=== PATIENT | male | born 1955 | race Caucasian/White ===

== ENCOUNTER 2018-06-16 19:49 | Observation (INO) | payer BC ==
--- NOTE | 2018-06-16 21:04 | ED ---
General Adult HPI - General Chief complaint: Weakness Stated complaint: Neuro Symptoms Source: patient, EMS Mode of arrival: EMS Limitations: no limitations - History of Present Illness Initial comments: Dictation was produced using [employer] dictation software. please excuse any grammatical, word or spelling errors. Chief Complaint: 63-year-old male with past medical history A. fib ablation, dyslipidemia and hypertension presents with strokelike symptoms. History of Present Illness: Since his symptoms began 20 minutes prior to arrival. He states that his left upper extremity went completely flaccid. States that his symptoms lasted for 20 minutes and then he regained function of his left upper extremity. He does state that he still has some residual numbness in his pinky however that has since resolved. Patient takes Coumadin for atrial fibrillation. He denies ever having had stroke in the past. The ROS documented in this emergency department record has been reviewed and confirmed by me. Those systems with pertinent positive or negative responses have been documented in the HPI. All other systems are other negative and/or noncontributory. - Related Data Home Medications Medication Instructions Recorded Confirmed Lisinopril 30 mg PO DAILY 06/16/18 06/16/18 Lisinopril 40 mg PO DIRECTED 06/16/18 06/16/18 Metoprolol Succinate [Toprol Xl] 50 mg PO DAILY 06/16/18 06/16/18 Omeprazole [PriLOSEC] 20 mg PO AC-BRKFST 06/16/18 06/16/18 Propafenone [Rythmol] 225 mg PO TID 06/16/18 06/16/18 Simvastatin [Zocor] 40 mg PO HS 06/16/18 06/16/18 Warfarin [Coumadin] 2.5 mg PO SA 06/16/18 06/16/18 Warfarin [Coumadin] 5 mg PO SUMOTUWETHFR 06/16/18 06/16/18 metFORMIN HCL [Glucophage] 500 mg PO BID 06/16/18 06/16/18 Allergies Allergy/AdvReac Type Severity Reaction Status Date / Time No Known Allergies Allergy Unverified 06/16/18 20:06 Review of Systems ROS Statement: Those systems with pertinent positive or pertinent negative responses have been documented in the HPI. ROS Other: All systems not noted in ROS Statement are negative. Past Medical History Past Medical History: Atrial Fibrillation, Hyperlipidemia, Hypertension History of Any Multi-Drug Resistant Organisms: None Reported Additional Past Surgical History / Comment(s): left rotator cuff surgery Past Psychological History: No Psychological Hx Reported Smoking Status: Never smoker Past Alcohol Use History: Occasional Past Drug Use History: None Reported General Exam - General Exam Comments Initial Comments: PHYSICAL EXAM: General Impression: Alert and oriented x3, not in acute distress HEENT: Normocephalic atraumatic, extra-ocular movements intact, pupils equal and reactive to light bilaterally, mucous membranes moist. Cardiovascular: Heart regular rate and rhythm, S1&S2 audible, no murmurs, rubs or gallops Chest: Lungs clear to auscultation bilaterally, no rhonchi, no wheeze, no rales Abdomen: Bowel sounds present, abdomen soft, non-tender, non-distended, no organomegaly Musculoskeletal: Pulses present and equal in all extremities, no peripheral edema Motor: Power 5/5 bilaterally, no focal deficits noted Neurological: CN II-XII grossly intact, no focal motor or sensory deficits noted Skin: Intact with no visualized rashes Psych: Normal affect and mood Limitations: no limitations Course Vital Signs 06/16/18 19:54 Temperature 98.1 F Pulse Rate 91 Respiratory 18 Rate Blood Pressure 144/87 O2 Sat by Pulse 97 Oximetry Medical Decision Making - Medical Decision Making ED course: 63-year-old male clinical presentation consistent with transient ischemic attack. Vital signs upon arrival are within acceptable limits. NIH of 0 at this time. Patient is not a candidate for TPA given history of Coumadin use and resolution of stroke symptoms. Patient given aspirin Laboratory evaluation obtained. CBC unremarkable. INR is 2.9. Patient is on Coumadin. Metabolic panel is unremarkable. Computed tomography scan of the head shows no acute processes. Chest x-rays negative. Atrial fibrillation is seen on EKG. He has not history of A. fib and is on Coumadin. Patient still continues to have some paresthesias to his left pinky. Clinically speaking there is concern for cerebrovascular accident. Most of the left upper extremity paresthesias has improved. Discussed patient that we like to keep him admitted to the hospital with neurology consult. Patient be admitted for CVA. EKG Interpretation: A 12 lead EKG was obtained. It was interpreted by myself and attending physician. There is a P wave before every QRS complex. Rate is 80. Rhythm is H fibrillation, QRS 96, QTC 447. QT is not prolonged. No ST segment depression or elevation.Overall, this EKG is unremarkable - Lab Data Result diagrams: 06/16/18 21:04 06/16/18 21:04 Lab Results 06/16/18 06/16/18 06/16/18 Range/Units 21:00 21:04 21:04 WBC 5.3 (3.8-10.6) k/uL RBC 4.38 (4.30-5.90) m/uL Hgb 13.5 (13.0-17.5) gm/dL Hct 40.6 (39.0-53.0) % MCV 92.6 (80.0-100.0) fL MCH 30.7 (25.0-35.0) pg MCHC 33.2 (31.0-37.0) g/dL RDW 13.3 (11.5-15.5) % Plt Count 238 (150-450) k/uL Neutrophils % 64 % Lymphocytes % 27 % Monocytes % 4 % Eosinophils % 2 % Basophils % 1 % Neutrophils # 3.4 (1.3-7.7) k/uL Lymphocytes # 1.5 (1.0-4.8) k/uL Monocytes # 0.2 (0-1.0) k/uL Eosinophils # 0.1 (0-0.7) k/uL Basophils # 0.0 (0-0.2) k/uL PT (9.0-12.0) sec INR (<1.2) APTT (22.0-30.0) sec Sodium 140 (137-145) mmol/L Potassium 3.6 (3.5-5.1) mmol/L Chloride 112 H (98-107) mmol/L Carbon Dioxide 21 L (22-30) mmol/L Anion Gap 7 mmol/L BUN 9 (9-20) mg/dL Creatinine 0.71 (0.66-1.25) mg/dL Est GFR (CKD-EPI)AfAm >90 (>60 ml/min/1.73 sqM) Est GFR (CKD-EPI)NonAf >90 (>60 ml/min/1.73 sqM) Glucose 84 (74-99) mg/dL Calcium 8.0 L (8.4-10.2) mg/dL Total Bilirubin 0.5 (0.2-1.3) mg/dL AST 18 (17-59) U/L ALT 34 (21-72) U/L Alkaline Phosphatase 37 L (38-126) U/L Total Creatine Kinase 86 (55-170) U/L CK-MB (CK-2) 2.0 (0.0-2.4) ng/mL CK-MB (CK-2) Rel Index 2.3 Troponin I <0.012 (0.000-0.034) ng/mL Total Protein 5.7 L (6.3-8.2) g/dL Albumin 3.3 L (3.5-5.0) g/dL 06/16/18 Range/Units 21:04 WBC (3.8-10.6) k/uL RBC (4.30-5.90) m/uL Hgb (13.0-17.5) gm/dL Hct (39.0-53.0) % MCV (80.0-100.0) fL MCH (25.0-35.0) pg MCHC (31.0-37.0) g/dL RDW (11.5-15.5) % Plt Count (150-450) k/uL Neutrophils % % Lymphocytes % % Monocytes % % Eosinophils % % Basophils % % Neutrophils # (1.3-7.7) k/uL Lymphocytes # (1.0-4.8) k/uL Monocytes # (0-1.0) k/uL Eosinophils # (0-0.7) k/uL Basophils # (0-0.2) k/uL PT 26.4 H (9.0-12.0) sec INR 2.9 H (<1.2) APTT 33.4 H (22.0-30.0) sec Sodium (137-145) mmol/L Potassium (3.5-5.1) mmol/L Chloride (98-107) mmol/L Carbon Dioxide (22-30) mmol/L Anion Gap mmol/L BUN (9-20) mg/dL Creatinine (0.66-1.25) mg/dL Est GFR (CKD-EPI)AfAm (>60 ml/min/1.73 sqM) Est GFR (CKD-EPI)NonAf (>60 ml/min/1.73 sqM) Glucose (74-99) mg/dL Calcium (8.4-10.2) mg/dL Total Bilirubin (0.2-1.3) mg/dL AST (17-59) U/L ALT (21-72) U/L Alkaline Phosphatase (38-126) U/L Total Creatine Kinase (55-170) U/L CK-MB (CK-2) (0.0-2.4) ng/mL CK-MB (CK-2) Rel Index Troponin I (0.000-0.034) ng/mL Total Protein (6.3-8.2) g/dL Albumin (3.5-5.0) g/dL Disposition Clinical Impression: CVA (cerebral vascular accident) Disposition: ADMITTED IP TO THIS HOSP Condition: Fair Referrals: Kin Denton MD [Primary Care Provider] - 1-2 days Time of Disposition: 22:25
--- NOTE | 2018-06-16 21:13 | CT ---
EXAMINATION TYPE: CT brain wo con DATE OF EXAM: 06/16/2018 COMPARISON: 01/18/2011 HISTORY: Left arm numbness. CT DLP: 1074.8 mGycm Automated exposure control for dose reduction was used. FINDINGS: Ventricles have normal size. There is no mass effect nor midline shift. There is no sign of intracran ial hemorrhage. The calvarium is intact. IMPRESSION: NEGATIVE CT SCAN OF THE BRAIN. NO CHANGE.
[2018-06-16 21:20] LABS: Basophils % (A) 1 %; Eosinophils # (A) 0.1 k/uL (0-0.7); Eosinophils % (A) 2 %; HCT 40.6 % (39.0-53.0); HGB 13.5 gm/dL (13.0-17.5); Lymphocytes # (A) 1.5 k/uL (1.0-4.8); Lymphocytes % (A) 27 %; MCH 30.7 pg (25.0-35.0); MCHC 33.2 g/dL (31.0-37.0); MCV 92.6 fL (80.0-100.0); Mean Platelet Volume 6.6; Monocytes # (A) 0.2 k/uL (0-1.0); Monocytes % (A) 4 %; Neutrophils # (A) 3.4 k/uL (1.3-7.7); Neutrophils % (A) 64 %; Platelet Count 238 k/uL (150-450); RBC 4.38 m/uL (4.30-5.90); RDW 13.3 % (11.5-15.5); WBC 5.3 k/uL (3.8-10.6)
--- NOTE | 2018-06-16 21:23 | XR ---
EXAMINATION TYPE: XR chest 2V DATE OF EXAM: 06/16/2018 COMPARISON: 01/18/2011 HISTORY: Altered mental status TECHNIQUE: Frontal and lateral views of the chest are obtained. FINDINGS: There is no heart failure nor confluent pneumonic infiltrate. Costophrenic angles are patricia r. Bony thorax is intact. There is mild linear density in the lung montalvo. IMPRESSION: Subsegmental atelectasis is new compared to old exam.. Normal heart.
[2018-06-16 21:25] LABS: INR 2.9 (<1.2); Partial Thromboplastin Time 33.4 sec (22.0-30.0); Prothrombin Time 26.4 sec (9.0-12.0)
[2018-06-16 21:26] LABS: ALT 34 U/L (21-72); AST 18 U/L (17-59); Albumin 3.3 g/dL (3.5-5.0); Alkaline Phosphatase 37 U/L (38-126); Anion Gap 7 mmol/L; Blood Urea Nitrogen 9 mg/dL (9-20); Carbon Dioxide 21 mmol/L (22-30); Chloride 112 mmol/L (98-107); Glucose 84 mg/dL (74-99); Potassium 3.6 mmol/L (3.5-5.1); Sodium 140 mmol/L (137-145); Total Bilirubin 0.5 mg/dL (0.2-1.3); Total Protein 5.7 g/dL (6.3-8.2)
[2018-06-16 21:34] LABS: Creatine Kinase 86 U/L (55-170)
[2018-06-16 21:48] LABS: Troponin I <0.012 ng/mL (0.000-0.034)
[2018-06-16 23:46] VITALS: BMI 33.7
[2018-06-17 07:11] LABS: Cholesterol 152 mg/dL (<200); HDL Cholesterol 32 mg/dL (40-60); LDL Cholesterol,Calculated 94 mg/dL (0-99); Triglycerides 131 mg/dL (<150)
--- NOTE | 2018-06-17 10:01 | P.CNNES ---
History of Present Illness Consult date: 06/17/18 Reason for Consult: Patient admitted with left sided weakness and TIA. History of Present Illness: This patient is a 63-year-old right-handed white male who was brought into the emergency room yesterday for evaluation of episode of left arm weakness. Patient states he was at home yesterday evening at about 6 PM and was making his bed when he noticed he could not move or lift his left arm. He thought maybe he had injured his arm but it continued to remain flaccid for at least 15 minutes in duration. He decided to call EMS and by the time EMS had arrived to his home he slowly regained some use of the left arm. He was taken by EMS to the emergency room at [facility] for further evaluation. According to the patient his left arm remained flaccid for at least 15 minutes duration. Patient does have a history of atrial fibrillation. He is followed in the cardiology clinic with Dr. Miranda. He in fact was seen in the cardiology clinic yesterday and was being planned to undergo a ablation procedure next week. This first ablation procedure was done about 5 years ago. Apparently he was taken off of Coumadin but is now currently taking Coumadin on a regular basis. His INR in the emergency room yesterday was in the therapeutic range at 2.9. Patient was evaluated in the ER by Dr. Yen and was sent for a computed tomography scan of the brain. CAT scan of the brain came back negative for any acute changes. She was admitted to the hospital for further evaluation. Patient states that after 15 minutes or so in the ER yesterday is complete strength return to the left arm. He has had no further recurrence of left-sided numbness or weakness. His clinical history is consistent with acute right hemispheric TIA even though he is anticoagulated for his atrial fibrillation and is taking Coumadin. We have recommended that the patient should be seen by cardiology today for their further opinion in terms of ablation procedure versus long-term anticoagulation. The patient has been taking Zocor 40 mg daily. He states he has not had a recent lipid profile done. He denies any headache at this time. His neurological examination today is otherwise nonfocal. Patient is now admitted and neurology has been consulted for further evaluation and recommendations. Review of Systems Constitutional: Denies chills, Denies fever Eyes: denies blurred vision, denies pain Ears, nose, mouth and throat: Denies headache, Denies sore throat Cardiovascular: Reports irregular heart beat, Denies chest pain, Denies shortness of breath Respiratory: Denies cough Gastrointestinal: Denies abdominal pain, Denies diarrhea, Denies nausea, Denies vomiting Musculoskeletal: Denies myalgias Integumentary: Denies pruritus, Denies rash Neurological: Reports motor disturbance, Denies numbness, Denies weakness Psychiatric: Denies anxiety, Denies depression Endocrine: Denies fatigue, Denies weight change Past Medical History Past Medical History: Atrial Fibrillation, Hyperlipidemia, Hypertension History of Any Multi-Drug Resistant Organisms: None Reported Additional Past Surgical History / Comment(s): left rotator cuff surgery Past Anesthesia/Blood Transfusion Reactions: No Reported Reaction Past Psychological History: No Psychological Hx Reported Smoking Status: Never smoker Past Alcohol Use History: Occasional Past Drug Use History: None Reported Medications and Allergies Home Medications Medication Instructions Recorded Confirmed Type Lisinopril 40 mg PO DAILY 06/16/18 06/17/18 History Metoprolol Succinate [Toprol Xl] 50 mg PO DAILY 06/16/18 06/16/18 History Omeprazole [PriLOSEC] 20 mg PO AC-BRKFST 06/16/18 06/16/18 History Simvastatin [Zocor] 40 mg PO HS 06/16/18 06/16/18 History Warfarin [Coumadin] 2.5 mg PO SA 06/16/18 06/16/18 History Warfarin [Coumadin] 5 mg PO SUMOTUWETHFR 06/16/18 06/16/18 History metFORMIN HCL [Glucophage] 500 mg PO BID 06/16/18 06/16/18 History Allergies Allergy/AdvReac Type Severity Reaction Status Date / Time No Known Allergies Allergy Unverified 06/16/18 20:06 Physical Examination - Vital Signs Vital Signs: Vital Signs Temp Pulse Pulse Resp BP BP Pulse Ox 06/17/18 04:00 97.8 F 64 15 127/70 100 06/17/18 00:00 97.8 F 65 16 146/64 99 06/16/18 23:27 98.1 F 82 18 135/90 96 06/16/18 22:57 98.2 F 78 18 141/93 98 06/16/18 22:39 98 F 68 16 148/70 98 06/16/18 21:30 86 18 133/90 95 06/16/18 19:54 98.1 F 91 18 144/87 97 Intake and Output 06/16/18 06/17/18 06/17/18 22:59 06:59 14:59 Intake Total 480 Output Total 700 Balance -220 Intake: Oral 480 Output: Urine 700 Other: Voiding Method Toilet Weight 116.12 kg 115.1 kg - Constitutional General appearance: average body habitus, cooperative - EENT EENT: PERRL, mucous membranes moist - Respiratory Respiratory: lungs clear, normal breath sounds - Cardiovascular Cardiovascular: regular rate, normal S1, normal S2 Extremities: no peripheral edema bilaterally - Gastrointestinal Gastrointestinal: normoactive bowel sounds - Integumentary Integumentary: normal - Neurologic Cranial nerve examination: PERRL, EOMI, V1/V2/V3 grossly intact, face symmetric , intact gag reflex, intact corneal reflex, normal palatal elevation Speech examination: intact Sensorimotor examination: intact Detailed motor examination: full strength in all major muscle groups Motor examination - right side: 5/5: biceps, triceps, wrist flexion, wrist extension, hydrotel operator, hip flexors, knee extensors, dorsiflexion, toe extension (EHL) , plantarflexion Motor examination - left side: 5/5: biceps, triceps, wrist flexion, wrist extension, hydrotel operator, hip flexors, knee extensors, dorsiflexion, toe extension (EHL) , plantarflexion Detailed sensory examination: intact Reflex and gait examination: intact Reflexes: 1+: ankle, bicep, knee, tricep - Musculoskeletal Musculoskeletal: no pain - Psychiatric Psychiatric: mood/affect appropriate, cooperative Results - Laboratory Findings CBC and BMP: 06/16/18 21:04 06/16/18 21:04 Abnormal Lab Findings: Abnormal Labs 06/16/18 06/16/18 06/17/18 21:04 21:04 06:30 PT 26.4 H INR 2.9 H APTT 33.4 H Chloride 112 H Carbon Dioxide 21 L Calcium 8.0 L Alkaline Phosphatase 37 L Total Protein 5.7 L Albumin 3.3 L HDL Cholesterol 32 L Assessment and Plan (1) TIA (transient ischemic attack) Current Visit: Yes Status: Acute Code(s): G45.9 - TRANSIENT CEREBRAL ISCHEMIC ATTACK, UNSPECIFIED SNOMED Code(s): 682023704 (2) Atrial fibrillation Current Visit: Yes Status: Acute Code(s): I48.91 - UNSPECIFIED ATRIAL FIBRILLATION SNOMED Code(s): 78773500 (3) History of cardiac radiofrequency ablation Current Visit: Yes Status: Acute Code(s): Z98.890 - OTHER SPECIFIED POSTPROCEDURAL STATES SNOMED Code(s): 869568396 (4) Hyperlipidemia Current Visit: Yes Status: Acute Code(s): E78.5 - HYPERLIPIDEMIA, UNSPECIFIED SNOMED Code(s): 63892109 Plan: This patient is a 63-year-old male with a long-standing history of atrial fibrillation in the past. He underwent cardiac ablation procedure 5 years ago and has been maintained on Coumadin therapy. Yesterday the patient developed an episode of left arm hemiplegia that lasted at least 15-20 minutes in duration. He was brought into the emergency room for further evaluation. His symptoms did resolve and his strength returned to the left arm completely while he was waiting in the emergency room. He is taking Coumadin and his INR yesterday was 2.9. He had been seen in the cardiology clinic just recently and underwent extensive testing. He is being scheduled for a repeat ablation procedure in the next few weeks. This patient likely is suffering acute right hemispheric TIA. We recommend he be maintained on Coumadin with an INR between 23. Case was discussed with cardiology today and they will reevaluate him in terms of his current symptoms. He will require possible ablation procedure for further management. We will await further recommendations from cardiology. We have recommended a complete stroke evaluation for the patient. His overall prognosis at this time remains very guarded. Time with Patient: Greater than 30
--- NOTE | 2018-06-17 10:03 | P.CRDCN ---
History of Present Illness Consult date: 06/17/18 Requesting physician: Dillon Loza Consult reason: atrial fibrillation Chief complaint: Left arm numbness and flaccidity History of present illness: This is a pleasant 63-year-old male who follows regularly with Dr. Aponte in the office. He has known persistent atrial fibrillation, he has in the past undergone antral isolation of the pulmonary veins about 5 years ago , he is recently seen Dr. Miranda in the office, was back in atrial fibrillation , he had been on Rythmol up until that point. Patient also has history of hypertension, hyperlipidemia, family history of coronary artery disease and prior history of smoking. At his most recent visit in the office yesterday, his Rythmol was discontinued and patient was told to start his flecainide tomorrow. He is then scheduled to undergo another cardioversion on July [address] Pop. Patient has been on Coumadin for several years for his atrial fibrillation, INR is 2.9. He presents to the hospital on this occasion with symptoms of left arm weakness and flaccidity which came on all of a sudden , symptoms lasted 20-30 minutes in duration. This morning at the time of my examination he no longer has any weakness in that arm. Had scan of the brain was performed on admission which was negative. Chest x-ray revealed subsegmental atelectasis new as compared with prior exam. EKG shows atrial fibrillation with a controlled ventricular response. I pressure on arrival 144/ 80, heart rate in the 90s, temperature 98.1, he is 97% on room air. Blood pressure this morning 152/90, heart rate in the 80s, temperature 98.7, 100% on room air CBC is normal, INR 2.9, sodium 140, potassium 3.6, BUN 9, creatinine 0.7. At the time of my examination this morning, patient's symptoms have completely resolved, he has no complaints. Past Medical History Past Medical History: Atrial Fibrillation, Hyperlipidemia, Hypertension History of Any Multi-Drug Resistant Organisms: None Reported Additional Past Surgical History / Comment(s): left rotator cuff surgery Past Anesthesia/Blood Transfusion Reactions: No Reported Reaction Past Psychological History: No Psychological Hx Reported Smoking Status: Never smoker Past Alcohol Use History: Occasional Past Drug Use History: None Reported Medications and Allergies Home Medications Medication Instructions Recorded Confirmed Type Lisinopril 40 mg PO DAILY 06/16/18 06/17/18 History Metoprolol Succinate [Toprol Xl] 50 mg PO DAILY 06/16/18 06/16/18 History Omeprazole [PriLOSEC] 20 mg PO AC-BRKFST 06/16/18 06/16/18 History Simvastatin [Zocor] 40 mg PO HS 06/16/18 06/16/18 History Warfarin [Coumadin] 2.5 mg PO SA 06/16/18 06/16/18 History Warfarin [Coumadin] 5 mg PO SUMOTUWETHFR 06/16/18 06/16/18 History metFORMIN HCL [Glucophage] 500 mg PO BID 06/16/18 06/16/18 History Allergies Allergy/AdvReac Type Severity Reaction Status Date / Time No Known Allergies Allergy Unverified 06/16/18 20:06 Physical Exam Vitals: Vital Signs Temp Pulse Pulse Resp BP BP Pulse Ox 06/17/18 08:00 98.7 F 84 16 152/97 100 06/17/18 04:00 97.8 F 64 15 127/70 100 06/17/18 00:00 97.8 F 65 16 146/64 99 06/16/18 23:27 98.1 F 82 18 135/90 96 06/16/18 22:57 98.2 F 78 18 141/93 98 06/16/18 22:39 98 F 68 16 148/70 98 06/16/18 21:30 86 18 133/90 95 06/16/18 19:54 98.1 F 91 18 144/87 97 Intake and Output 06/16/18 06/17/18 06/17/18 22:59 06:59 14:59 Intake Total 480 Output Total 700 Balance -220 Intake: Oral 480 Output: Urine 700 Other: Voiding Method Toilet Weight 116.12 kg 115.1 kg PHYSICAL EXAMINATION: GENERAL: 63-year-old gentleman in no acute distress at the time of my examination HEENT: Head is atraumatic, normocephalic. Pupils equal, round. Sclera anicteric. Conjunctiva are clear. Mucous membranes of the mouth are moist. Neck is supple. There is no elevated jugular venous pressure.] bruit is heard. HEART EXAMINATION: Heart S1 and S2 irregularly irregular CHEST EXAMINATION: Lungs are clear to auscultation and precussion. No chest wall tenderness is noted on palpation or with deep breathing. ABDOMEN: Soft, nontender. Bowel sounds are heard. No organomegaly noted. EXTREMITIES: 2+ peripheral pulses with no evidence of peripheral edema and no calf tenderness noted. NEUROLOGIC patient is awake, alert and oriented ?-3. . Results 06/16/18 21:04 06/16/18 21:04 Cardiac Enzymes 06/16/18 06/16/18 Range/Units 21:00 21:04 AST 18 (17-59) U/L CK-MB (CK-2) 2.0 (0.0-2.4) ng/mL Troponin I <0.012 (0.000-0.034) ng/mL Coagulation 06/16/18 Range/Units 21:04 PT 26.4 H (9.0-12.0) sec APTT 33.4 H (22.0-30.0) sec Lipids 06/17/18 Range/Units 06:30 Triglycerides 131 (<150) mg/dL Cholesterol 152 (<200) mg/dL HDL Cholesterol 32 L (40-60) mg/dL CBC 06/16/18 Range/Units 21:04 WBC 5.3 (3.8-10.6) k/uL RBC 4.38 (4.30-5.90) m/uL Hgb 13.5 (13.0-17.5) gm/dL Hct 40.6 (39.0-53.0) % Plt Count 238 (150-450) k/uL Comprehensive Metabolic Panel 06/16/18 Range/Units 21:04 Sodium 140 (137-145) mmol/L Potassium 3.6 (3.5-5.1) mmol/L Chloride 112 H (98-107) mmol/L Carbon Dioxide 21 L (22-30) mmol/L BUN 9 (9-20) mg/dL Creatinine 0.71 (0.66-1.25) mg/dL Glucose 84 (74-99) mg/dL Calcium 8.0 L (8.4-10.2) mg/dL AST 18 (17-59) U/L ALT 34 (21-72) U/L Alkaline Phosphatase 37 L (38-126) U/L Total Protein 5.7 L (6.3-8.2) g/dL Albumin 3.3 L (3.5-5.0) g/dL Intake and Output 08/17/18 08/18/18 08/18/18 22:59 06:59 14:59 Intake Total 480 Output Total 700 Balance -220 Intake: Oral 480 Output: Urine 700 Other: Voiding Method Toilet Weight 116.12 kg 115.1 kg 06/16/18 21:04 06/16/18 21:04 EKG Interpretations (text) EKG shows atrial fibrillation with controlled ventricular response. Assessment and Plan Plan: Assessment and plan #1 symptoms of left-sided flaccidity and weakness, suggestive of TIA. Initial CAT scan was normal. #2 paroxysmal atrial fibrillation, patient has history of prior ablation in 2012 , Rythmol was discontinued in the office yesterday, he was told to start flecainide from tomorrow. He then is scheduled to undergo a cardioversion next week, and subsequent ablation on July 13. On Coumadin for anticoagulation , INR 2.9. #3 hyperlipidemia #4 hypertension #5 family history of CAD #6 prior history of smoking Plan We will obtain an echocardiogram with Doppler study. I did have a discussion with the patient regarding initiating one of the newer anticoagulants, this has been discussed with him in the past but because of cost they did not proceed with this. This time we will continue the patient's Coumadin, and initiate flecainide from tomorrow. Cardioversion is already scheduled for next week. Further recommendations to follow. DNP note has been reviewed, I agree with a documented findings and plan of care. Patient was seen and examined.
[2018-06-17] MEDS ORDERED: LISINOPRIL 20 MG TAB PO STA (10:24)
[2018-06-17] MEDS ORDERED: METOPROLOL SUCCINATE (ER) 50 MG TAB.ER.24H PO STA (10:26)
--- NOTE | 2018-06-17 12:29 | US ---
EXAMINATION TYPE: US carotid duplex BILAT DATE OF EXAM: 06/17/2018 COMPARISON: NONE CLINICAL HISTORY: Patient with right hemispheric TIA.. Left arm numbness EXAM MEASUREMENTS: RIGHT: Peak Systolic Velocity (PSV) cm/sec ----- Right CCA: 82.0 ----- Right ICA: 70.3 ----- Right ECA: 60.3 ICA/CCA ratio: 0.9 RIGHT: End Diastole cm/sec ----- Right CCA: 20.7 ----- Right ICA: 28.6 ----- Right ECA: 10.9 LEFT: Peak Systolic Velocity (PSV) cm/sec ----- Left CCA: 63.8 ----- Left ICA: 91.9 ----- Left ECA: 77.5 ICA/CCA ratio: 1.4 LEFT: End Diastole cm/sec ----- Left CCA: 20.7 ----- Left ICA: 25.7 ----- Left ECA: 16.7 VERTEBRALS (direction of flow): Right Vertebral: Antegrade Left Vertebral: Antegrade Mild plaque bilateral bifurcations. No increased velocities. No evidence of significant stenosis IMPRESSION: I DO NOT SEE EVIDENCE OF A HEMODYNAMICALLY SIGNIFICANT STENOSIS IN EITHER CAROTID SYSTEM. Criteria for Assigning % of Stenosis / Diameter reduction (Estimation based on the indirect measurements of the internal carotid artery velocities (ICA PSV). 1. Normal (no stenosis)=ICA PSV < 125 cm/s: ratio < 2.0: ICA EDV<40 cm/s. 2. Less than 50% stenosis=ICA PSV < 125 cm/s: ratio < 2.0: ICA EDV<40 cm/s. 3. 50 to 69% stenosis=ICA PSV of 125 to 230 cm/s: ration 2.0 ? 4.0: ICA EDV 40-100 cm/s. 4. Greater than 70% stenosis to near occlusion= ICA PSV > 230 cm/s: ratio > 4.0: ICA EDV > 100 cm/s. 5. Near occlusion= ICA PSV velocities may be low or undetectable: variable ratio and ICA EDV. 6. Total occlusion=unable to detect flow.
--- NOTE | 2018-06-17 12:48 | P.HPIM ---
History of Present Illness This is a pleasant 63 years old male with past medical history of atrial fibrillation, hyperlipidemia, hypertension, who presents because of temporal left upper extremity weakness. Patient with no previous history of stroke/TIA, he developed sudden weakness in his left upper extremity medical, by the time he called EMS and get into the chart his weakness has resolved within 15-20 minutes. This is associated with numbness specific general headache about 5/10 in severity which is also resolved within the same time frame of 15-20 minutes. Currently patient states that his left upper extremity is improved back to normal. He was on Coumadin for A. fib and is scheduled to have ablation surgery /procedure on 07/13/2018 Review of Systems CONSTITUTIONAL: No fever, no malaise, no fatigue. HEENT: No recent visual problems or hearing problems. Denied any sore throat. CARDIOVASCULAR: No orthopnea, PND, no palpitations, no syncope. PULMONARY: No shortness of breath, no cough, no hemoptysis. GASTROINTESTINAL: No diarrhea, no nausea, no vomiting, no abdominal pain. Normoactive bowel sounds. NEUROLOGICAL: No headaches, no weakness, no numbness. HEMATOLOGICAL: Denies any bleeding or petechiae. GENITOURINARY: Denies any burning micturition, frequency, or urgency. MUSCULOSKELETAL/RHEUMATOLOGICAL: Denies any joint pain, swelling, or any muscle pain. ENDOCRINE: Denies any polyuria or polydipsia. Past Medical History Past Medical History: Atrial Fibrillation, Hyperlipidemia, Hypertension History of Any Multi-Drug Resistant Organisms: None Reported Additional Past Surgical History / Comment(s): left rotator cuff surgery Past Anesthesia/Blood Transfusion Reactions: No Reported Reaction Past Psychological History: No Psychological Hx Reported Smoking Status: Never smoker Past Alcohol Use History: Occasional Past Drug Use History: None Reported Medications and Allergies Home Medications Medication Instructions Recorded Confirmed Type Lisinopril 40 mg PO DAILY 06/16/18 06/17/18 History Metoprolol Succinate [Toprol Xl] 50 mg PO DAILY 06/16/18 06/16/18 History Omeprazole [PriLOSEC] 20 mg PO [id number]-[id number] 06/16/18 06/16/18 History Simvastatin [Zocor] 40 mg PO HS 06/16/18 06/16/18 History Warfarin [Coumadin] 2.5 mg PO SA 06/16/18 06/16/18 History Warfarin [Coumadin] 5 mg PO SUMOTUWETHFR 06/16/18 06/16/18 History metFORMIN HCL [Glucophage] 500 mg PO BID 06/16/18 06/16/18 History Allergies Allergy/AdvReac Type Severity Reaction Status Date / Time No Known Allergies Allergy Unverified 06/16/18 20:06 Physical Exam Vitals: Vital Signs Temp Pulse Pulse Resp BP BP Pulse Ox 06/17/18 08:00 98.7 F 84 16 152/97 100 06/17/18 04:00 97.8 F 64 15 127/70 100 06/17/18 00:00 97.8 F 65 16 146/64 99 06/16/18 23:27 98.1 F 82 18 135/90 96 06/16/18 22:57 98.2 F 78 18 141/93 98 06/16/18 22:39 98 F 68 16 148/70 98 06/16/18 21:30 86 18 133/90 95 06/16/18 19:54 98.1 F 91 18 144/87 97 Intake and Output 06/16/18 06/17/18 06/17/18 22:59 06:59 14:59 Intake Total 480 Output Total 700 Balance -220 Intake: Oral 480 Output: Urine 700 Other: Voiding Method Toilet Toilet Weight 116.12 kg 115.1 kg GENERAL: The patient is alert and oriented x3, not in any acute distress. Well developed, well nourished. HEENT: Pupils are round and equally reacting to light. EOMI. No scleral icterus. No conjunctival pallor. Normocephalic, atraumatic. No pharyngeal erythema. No thyromegaly. CARDIOVASCULAR: S1 and S2 present. No murmurs, rubs, or gallops. PULMONARY: Chest is clear to auscultation, no wheezing or crackles. ABDOMEN: Soft, nontender, nondistended, normoactive bowel sounds. No palpable organomegaly. MUSCULOSKELETAL: No joint swelling or deformity. EXTREMITIES: No cyanosis, clubbing, or pedal edema. NEUROLOGICAL: Gross neurological examination did not reveal any focal deficits. SKIN: No rashes. Results CBC & Chem 7: 06/16/18 21:04 06/16/18 21:04 Labs: Abnormal Lab Results - Last 24 Hours (Table) 06/16/18 06/16/18 06/17/18 Range/Units 21:04 21:04 06:30 PT 26.4 H (9.0-12.0) sec INR 2.9 H (<1.2) APTT 33.4 H (22.0-30.0) sec Chloride 112 H (98-107) mmol/L Carbon Dioxide 21 L (22-30) mmol/L Calcium 8.0 L (8.4-10.2) mg/dL Alkaline Phosphatase 37 L (38-126) U/L Total Protein 5.7 L (6.3-8.2) g/dL Albumin 3.3 L (3.5-5.0) g/dL HDL Cholesterol 32 L (40-60) mg/dL Thrombosis Risk Factor Assmnt - Choose All That Apply Each Risk Factor Represents 2 Points: Age 61-74 years Thrombosis Risk Factor Assessment Total Risk Factor Score: 2 Thrombosis Risk Factor Assessment Level: Low Risk Assessment and Plan Assessment: Transient left upper extremity weakness, mostly TIA History of atrial fibrillation, planned to have ablation procedure on July 13 Essential hypertension Hyperlipidemia Plan: This is a pleasant 63 years old male who presents with transient weakness of the left upper extremity suspicious for TIA. Continue same treatment. Continue with symptomatic treatment. Resume home medication. Monitor lytes and vitals. She and neurology R following the patient. Carotid complex is negative. Continue with Coumadin and monitor INR. 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 GI and DVT prophylaxis. Further recommendations based on the clinical course and progression of the patient DVT prophylaxis already on Coumadin GI prophylaxis ppi
[2018-06-17] MEDS: INSULIN ASPART 100 UNIT/ML 1 ML 10 ML VIAL SQ SCH ×3 (13:29→21:03)
[2018-06-17 13:36] LABS: Glucose,Whole Blood 134 mg/dL (75-99)
[2018-06-17] MEDS ORDERED: WARFARIN 5 MG TAB PO ONE (18:00)
[2018-06-17] MEDS ORDERED: WARFARIN 2.5 MG TAB PO SCH (18:00)
[2018-06-17 18:38] LABS: Glucose,Whole Blood 113 mg/dL (75-99)
[2018-06-17 18:39] LABS: Hemoglobin A1C 6.1 % (4.0-6.0)
[2018-06-17] MEDS: ATORVASTATIN 20 MG TAB PO SCH (19:35)
[2018-06-17 21:02] LABS: Glucose,Whole Blood 101 mg/dL (75-99)
[2018-06-18 05:33] LABS: Glucose,Whole Blood 107 mg/dL (75-99)
[2018-06-18] MEDS: INSULIN ASPART 100 UNIT/ML 1 ML 10 ML VIAL SQ SCH ×4 (06:01→19:56)
[2018-06-18] MEDS: PANTOPRAZOLE 40 MG TABLET PO SCH (06:11)
[2018-06-18 06:17] LABS: INR 2.2 (<1.2); Prothrombin Time 19.8 sec (9.0-12.0)
[2018-06-18 06:27] LABS: Cholesterol 165 mg/dL (<200); HDL Cholesterol 34 mg/dL (40-60); LDL Cholesterol,Calculated 98 mg/dL (0-99); Triglycerides 165 mg/dL (<150)
--- NOTE | 2018-06-18 08:44 | ECHOF ---
Referral Reason:afib MEASUREMENTS -------- HEIGHT: 185.4 cm WEIGHT: 114.8 kg BP: 152/97 RVIDd: 3.6 cm (< 3.3) IVSd: 1.0 cm (0.6 - 1.1) LVIDd: 4.7 cm (3.9 - 5.3) LVPWd: 1.0 cm (0.6 - 1.1) IVSs: 1.5 cm LVIDs: 3.4 cm LVPWs: 1.5 cm FINDINGS -------- Sinus rhythm. This was a technically adequate study. Limited Study performed for the assessment of patent foramen ovale. The left ventricular size is normal. Left ventricular wall thickness is normal. Overall left vent ricular systolic function is normal with, an EF between 55 - 60 %. Contrast study was performed with 1 iv injection of 8 ccs of agitated normal saline at rest. There was no atrial shunt visualized via agitated saline study. CONCLUSIONS -------- 1. Sinus rhythm. 2. This was a technically adequate study. 3. Limited Study performed for the assessment of patent foramen ovale. 4. The left ventricular size is normal. 5. Left ventricular wall thickness is normal. 6. Overall left ventricular systolic function is normal with, an EF between 55 - 60 %. 7. Contrast study was performed with 1 iv injection of 8 ccs of agitated normal saline at rest. 8. There was no atrial shunt visualized via agitated saline study. WEB COORDINATOR: Kelvin Griffin DR. [facility]
[2018-06-18] MEDS: METOPROLOL SUCCINATE (ER) 50 MG TAB.ER.24H PO SCH (09:14)
[2018-06-18] MEDS: LISINOPRIL 20 MG TAB PO SCH (09:14)
[2018-06-18] MEDS: FLECAINIDE 50 MG TAB PO SCH ×2 (09:14→19:56)
[2018-06-18] MEDS: ASPIRIN 81 MG PO SCH (09:14)
[2018-06-18 11:55] LABS: Glucose,Whole Blood 98 mg/dL (75-99)
--- NOTE | 2018-06-18 13:49 | P.PN ---
Subjective Progress Note Date: 06/18/18 This patient is admitted to the hospital with the right arm numbness and weakness. The symptoms completely resolved. Patient has persistent atrial fibrillation. Patient was recently put on flecainide and had planned cardioversion. The etiology of this TIA is most probably embolic.A transthoracic echo with bubble injection did not reveal any evidence of PFO. His carotid Doppler study is negative for any significant obstructive disease. Patient is otherwise clinically stable. He wants to go home. He is on anticoagulation therapy with therapeutic INR. We have added a baby aspirin. Patient will follow with Dr. burns as an outpatient. Objective - Vital Signs Vital signs: Vital Signs Temp 97.4 F L 06/18/18 08:00 Pulse 78 06/18/18 08:00 Resp 18 06/18/18 04:00 BP 131/89 06/18/18 08:00 Pulse Ox 95 06/18/18 08:00 Intake & Output 06/17/18 06/18/18 06/18/18 18:59 06:59 18:59 Intake Total 1330 990 Output Total 0 Balance 1330 990 Weight 114.2 kg Intake: IV 10 30 Invasive Line 1 10 30 Oral 1320 960 Output: Urine 0 Other: Voiding Method Toilet Toilet # Voids 200 3 - Exam GENERAL EXAM: Patient is alert and oriented and doesn't appear to be in any acute distress HEENT: Normocephalic. Normal reaction of pupils, equal size, normal range of extraocular motion. No erythema or exudates in the throat. NECK: No masses, no nuchal rigidity. CHEST: No chest wall deformity. LUNGS: [Equal air entry with no crackles or wheeze.] HEART: [S1 and S2 normal with no audible mumurs or gallops. Regular rhythm, femorals equal on both sides..] ABDOMEN: No hepatosplenomegaly, normal bowel sounds, no guarding or rigidity. SKIN: No rashes CENTRAL NERVOUS SYSTEM: No focal deficits. EXTREMITIES: [No cyanosis, clubbing or edema. - Labs CBC & Chem 7: 06/16/18 21:04 06/16/18 21:04 Labs: Abnormal Lab Results - Last 24 Hours (Table) 06/17/18 06/17/18 06/17/18 Range/Units 06:30 18:36 21:01 PT (9.0-12.0) sec INR (<1.2) POC Glucose (mg/dL) 113 H 101 H (75-99) mg/dL Hemoglobin A1c 6.1 H (4.0-6.0) % Triglycerides (<150) mg/dL HDL Cholesterol (40-60) mg/dL 06/18/18 06/18/18 06/18/18 Range/Units 05:31 05:40 05:40 PT 19.8 H (9.0-12.0) sec INR 2.2 H (<1.2) POC Glucose (mg/dL) 107 H (75-99) mg/dL Hemoglobin A1c (4.0-6.0) % Triglycerides 165 H (<150) mg/dL HDL Cholesterol 34 L (40-60) mg/dL Assessment and Plan (1) Atrial fibrillation Current Visit: Yes Status: Acute Code(s): I48.91 - UNSPECIFIED ATRIAL FIBRILLATION SNOMED Code(s): 32680681 (2) Hyperlipidemia Current Visit: Yes Status: Acute Code(s): E78.5 - HYPERLIPIDEMIA, UNSPECIFIED SNOMED Code(s): 06228896 (3) TIA (transient ischemic attack) Current Visit: Yes Status: Acute Code(s): G45.9 - TRANSIENT CEREBRAL ISCHEMIC ATTACK, UNSPECIFIED SNOMED Code(s): 606590423 Plan: Continue anticoagulations with a baby aspirin. Follow-up with Dr. burns.
--- NOTE | 2018-06-18 16:41 | P.PN ---
Subjective This is a pleasant 63 years old male with past medical history of atrial fibrillation, hyperlipidemia, hypertension, who presents because of temporal left upper extremity weakness. Patient with no previous history of stroke/TIA, he developed sudden weakness in his left upper extremity medical, by the time he called EMS and get into the chart his weakness has resolved within 15-20 minutes. This is associated with numbness specific general headache about 5/10 in severity which is also resolved within the same time frame of 15-20 minutes. Currently patient states that his left upper extremity is improved back to normal. He was on Coumadin for A. fib and is scheduled to have ablation surgery /procedure on 07/13/2018 06/18/2018 pt was started on flecainide by cardiology team , they added aspirin to his anti -coagulation regiment, and recommended he f/u with as outpt Objective - Vital Signs Vital signs: Vital Signs Temp 97.4 F L 06/18/18 08:00 Pulse 84 06/18/18 12:00 Resp 18 06/18/18 04:00 BP 162/101 06/18/18 12:00 Pulse Ox 96 06/18/18 12:00 Intake & Output 06/17/18 06/18/18 06/18/18 18:59 06:59 18:59 Intake Total 1330 990 200 Output Total 0 Balance 1330 990 200 Weight 114.2 kg Intake: IV 10 30 Invasive Line 1 10 30 Oral 1320 960 200 Output: Urine 0 Other: Voiding Method Toilet Toilet # Voids 200 3 - Exam GENERAL: The patient is alert and oriented x3, not in any acute distress. Well developed, well nourished. HEENT: Pupils are round and equally reacting to light. EOMI. No scleral icterus. No conjunctival pallor. Normocephalic, atraumatic. No pharyngeal erythema. No thyromegaly. CARDIOVASCULAR: S1 and S2 present. No murmurs, rubs, or gallops. PULMONARY: Chest is clear to auscultation, no wheezing or crackles. ABDOMEN: Soft, nontender, nondistended, normoactive bowel sounds. No palpable organomegaly. MUSCULOSKELETAL: No joint swelling or deformity. EXTREMITIES: No cyanosis, clubbing, or pedal edema. NEUROLOGICAL: Gross neurological examination did not reveal any focal deficits. SKIN: No rashes. - Labs CBC & Chem 7: 06/16/18 21:04 06/16/18 21:04 Labs: Abnormal Lab Results - Last 24 Hours (Table) 06/17/18 06/17/18 06/17/18 Range/Units 06:30 18:36 21:01 PT (9.0-12.0) sec INR (<1.2) POC Glucose (mg/dL) 113 H 101 H (75-99) mg/dL Hemoglobin A1c 6.1 H (4.0-6.0) % Triglycerides (<150) mg/dL HDL Cholesterol (40-60) mg/dL 06/18/18 06/18/18 06/18/18 Range/Units 05:31 05:40 05:40 PT 19.8 H (9.0-12.0) sec INR 2.2 H (<1.2) POC Glucose (mg/dL) 107 H (75-99) mg/dL Hemoglobin A1c (4.0-6.0) % Triglycerides 165 H (<150) mg/dL HDL Cholesterol 34 L (40-60) mg/dL Assessment and Plan Assessment: Transient left upper extremity weakness, mostly TIA History of atrial fibrillation, planned to have ablation procedure on July 13 Essential hypertension Hyperlipidemia Plan: This is a pleasant 63 years old male who presents with transient weakness of the left upper extremity suspicious for TIA. Continue same treatment. Continue with symptomatic treatment. Resume home medication. Monitor lytes and vitals. She and neurology R following the patient. Carotid complex is negative. Continue with Coumadin and monitor INR. 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 GI and DVT prophylaxis. Further recommendations based on the clinical course and progression of the patient DVT prophylaxis already on Coumadin GI prophylaxis ppi
[2018-06-18 16:57] LABS: Glucose,Whole Blood 98 mg/dL (75-99)
[2018-06-18] MEDS ORDERED: WARFARIN 5 MG TAB PO SCH (18:00)
[2018-06-18] MEDS: ATORVASTATIN 20 MG TAB PO SCH (19:56)
[2018-06-18 20:56] LABS: Glucose,Whole Blood 97 mg/dL (75-99)
--- NOTE | 2018-06-19 00:37 | P.PN ---
Subjective Progress Note Date: 06/18/18 This patient is a 63-year-old male who is being evaluated for chronic atrial fibrillation and recent episode of TIA symptoms. The patient was seen by cardiology today. He has been placed on flat and 9 for treatment of his persistent atrial fibrillation. He is to continue with anticoagulation and a baby aspirin was also added by cardiology today. Patient states he will be undergoing cardioversion procedure on of this coming week. Patient's blood pressure medications were also elevated. The patient has had no further TIA symptoms. We will await further recommendations from cardiology. His neurological examination at this time remains very stable. Objective - Vital Signs Vital signs: Vital Signs Temp 98 F 06/18/18 04:00 Pulse 84 06/18/18 04:00 Resp 18 06/18/18 04:00 BP 127/58 06/18/18 04:00 Pulse Ox 99 06/18/18 04:00 Intake & Output 06/17/18 06/18/18 06/18/18 18:59 06:59 18:59 Intake Total 1330 990 Output Total 0 Balance 1330 990 Weight 114.2 kg Intake: IV 10 30 Invasive Line 1 10 30 Oral 1320 960 Output: Urine 0 Other: Voiding Method Toilet Toilet # Voids 200 3 - Exam Physical examination: PHYSICAL EXAMINATION: Patient is resting comfortably in bed. VITAL SIGNS: Blood pressure is [140/92]. Heart rate is [78]. Respiration is [16] . Temperature is [97.4]. HEENT: Head is atraumatic, neck is supple, there were no carotid bruits. CHEST: Lungs are clear to auscultation and percussion. CARDIAC: S1, S2 normal rate and rhythm. There is no murmur. ABDOMEN: Soft and nontender. Bowel sounds are present. EXTREMITIES: There is no pedal edema. Peripheral pulses are present. Neurological examination: Patient has a nonfocal neurological examination today. - Labs CBC & Chem 7: 06/16/18 21:04 06/16/18 21:04 Labs: Abnormal Lab Results - Last 24 Hours (Table) 06/17/18 06/17/18 06/17/18 Range/Units 06:30 13:33 18:36 PT (9.0-12.0) sec INR (<1.2) POC Glucose (mg/dL) 134 H 113 H (75-99) mg/dL Hemoglobin A1c 6.1 H (4.0-6.0) % Triglycerides (<150) mg/dL HDL Cholesterol (40-60) mg/dL 06/17/18 06/18/18 06/18/18 Range/Units 21:01 05:31 05:40 PT (9.0-12.0) sec INR (<1.2) POC Glucose (mg/dL) 101 H 107 H (75-99) mg/dL Hemoglobin A1c (4.0-6.0) % Triglycerides 165 H (<150) mg/dL HDL Cholesterol 34 L (40-60) mg/dL 06/18/18 Range/Units 05:40 PT 19.8 H (9.0-12.0) sec INR 2.2 H (<1.2) POC Glucose (mg/dL) (75-99) mg/dL Hemoglobin A1c (4.0-6.0) % Triglycerides (<150) mg/dL HDL Cholesterol (40-60) mg/dL Assessment and Plan (1) TIA (transient ischemic attack) Current Visit: Yes Status: Acute Code(s): G45.9 - TRANSIENT CEREBRAL ISCHEMIC ATTACK, UNSPECIFIED SNOMED Code(s): 335503895 (2) Atrial fibrillation Current Visit: Yes Status: Acute Code(s): I48.91 - UNSPECIFIED ATRIAL FIBRILLATION SNOMED Code(s): 09071625 (3) History of cardiac radiofrequency ablation Current Visit: Yes Status: Acute Code(s): Z98.890 - OTHER SPECIFIED POSTPROCEDURAL STATES SNOMED Code(s): 655733524 (4) Hyperlipidemia Current Visit: Yes Status: Acute Code(s): E78.5 - HYPERLIPIDEMIA, UNSPECIFIED SNOMED Code(s): 44570645 Plan: This patient is a 63-year-old male with a long-standing history of atrial fibrillation in the past. He underwent cardiac ablation procedure 5 years ago and has been maintained on Coumadin therapy. Yesterday the patient developed an episode of left arm hemiplegia that lasted at least 15-20 minutes in duration. He was brought into the emergency room for further evaluation. His symptoms did resolve and his strength returned to the left arm completely while he was waiting in the emergency room. He is taking Coumadin and his INR yesterday was 2.9. He had been seen in the cardiology clinic just recently and underwent extensive testing. He is being scheduled for a repeat ablation procedure in the next few weeks. This patient likely is suffering acute right hemispheric TIA. We recommend he be maintained on Coumadin with an INR between 23. Case was discussed with cardiology today and they will reevaluate him in terms of his current symptoms. He will require possible ablation procedure for further management. We will await further recommendations from cardiology. We have recommended a complete stroke evaluation for the patient. The patient is scheduled by cardiology to undergo cardioversion procedure next week. His neurological examination at this time remains very stable and he has had no further TIA symptoms. He is being considered for possible discharge home today and should follow-up in the outpatient neurology clinic in 3-4 weeks. His overall prognosis at this time remains very guarded.
[2018-06-19 05:59] LABS: Glucose,Whole Blood 106 mg/dL (75-99)
[2018-06-19] MEDS: INSULIN ASPART 100 UNIT/ML 1 ML 10 ML VIAL SQ SCH ×2 (06:05→13:38)
[2018-06-19] MEDS: PANTOPRAZOLE 40 MG TABLET PO SCH (06:06)
[2018-06-19 06:18] LABS: INR 2.2 (<1.2)
[2018-06-19 06:19] LABS: Prothrombin Time 19.5 sec (9.0-12.0)
[2018-06-19] MEDS: ASPIRIN 81 MG PO SCH (08:31)
[2018-06-19] MEDS: METOPROLOL SUCCINATE (ER) 50 MG TAB.ER.24H PO SCH (08:31)
[2018-06-19] MEDS: LISINOPRIL 20 MG TAB PO SCH (08:31)
[2018-06-19] MEDS: FLECAINIDE 50 MG TAB PO SCH (08:31)
[2018-06-19 08:33] VITALS: TEMP 96.9
[2018-06-19 11:24] LABS: Glucose,Whole Blood 105 mg/dL (75-99)
[2018-06-19] MEDS ORDERED: SODIUM CHLORIDE 0.9% 500 ML IV ONE (13:08)
[2018-06-19] MEDS ORDERED: BENZOCAINE SPRAY 1 CAN MUCOUS MEM ONE ×2 (13:12)
[2018-06-19] MEDS ORDERED: MIDAZOLAM 2 MG/2 ML VIAL IV ONE (13:15)
[2018-06-19] MEDS ORDERED: fentaNYL (PF) 50 MCG/ML 2 ML AMP IV ONE (13:19)
[2018-06-19] MEDS: MIDAZOLAM 2 MG/2 ML VIAL IV ONE ×2 (13:21→13:25)
--- NOTE | 2018-06-19 13:40 | P.PN ---
Subjective Progress Note Date: 06/19/18 This is a pleasant 63-year-old male who follows regularly with Dr. Aponte in the office. He has known persistent atrial fibrillation, he has in the past undergone antral isolation of the pulmonary veins about 5 years ago , he is recently seen Dr. Miranda in the office, was back in atrial fibrillation , he had been on Rythmol up until that point. Patient also has history of hypertension, hyperlipidemia, family history of coronary artery disease and prior history of smoking. At his most recent visit in the office yesterday, his Rythmol was discontinued and patient was told to start his flecainide tomorrow. He is then scheduled to undergo another cardioversion on July [address] Pop. Patient has been on Coumadin for several years for his atrial fibrillation, INR is 2.9. He presents to the hospital on this occasion with symptoms of left arm weakness and flaccidity which came on all of a sudden , symptoms lasted 20-30 minutes in duration. This morning at the time of my examination he no longer has any weakness in that arm. Had scan of the brain was performed on admission which was negative. Chest x-ray revealed subsegmental atelectasis new as compared with prior exam. EKG shows atrial fibrillation with a controlled ventricular response. I pressure on arrival 144/ 80, heart rate in the 90s, temperature 98.1, he is 97% on room air. Blood pressure this morning 152/90, heart rate in the 80s, temperature 98.7, 100% on room air CBC is normal, INR 2.9, sodium 140, potassium 3.6, BUN 9, creatinine 0.7. At the time of my examination this morning, patient's symptoms have completely resolved, he has no complaints. 06/19/2018 Patient seen and examined this morning, continues to be in atrial fibrillation, rate under adequate control. INR 2.1. I did speak with Dr. Miranda regarding timing of follow-up, he then spoke with Dr. Aponte and asked him to perform a BRANDY today to rule out possibility of a clot. Initially the patient was anticipating going home today. We did educate him regarding the BRANDY and the need for BRANDY, this will be performed today at 1:00. Following that the patient will be discharged home. He is scheduled for his cardioversion on July 13, and ablation following that. Objective - Vital Signs Vital signs: Vital Signs Temp 96.9 F L 06/19/18 08:00 Pulse 78 06/19/18 08:00 Resp 18 06/19/18 04:00 BP 138/87 06/19/18 08:00 Pulse Ox 94 L 06/19/18 08:00 Intake & Output 06/18/18 06/19/18 06/19/18 18:59 06:59 18:59 Intake Total 200 1920 240 Output Total 1500 Balance 200 420 240 Weight 112.3 kg Intake: Oral 200 1920 240 Output: Urine 1500 Other: Voiding Method Toilet # Voids 3 - Exam PHYSICAL EXAMINATION: GENERAL: 63-year-old gentleman in no acute distress at the time of my examination HEENT: Head is atraumatic, normocephalic. Pupils equal, round. Sclera anicteric. Conjunctiva are clear. Mucous membranes of the mouth are moist. Neck is supple. There is no elevated jugular venous pressure.] bruit is heard. HEART EXAMINATION: Heart S1 and S2 irregularly irregular CHEST EXAMINATION: Lungs are clear to auscultation and precussion. No chest wall tenderness is noted on palpation or with deep breathing. ABDOMEN: Soft, nontender. Bowel sounds are heard. No organomegaly noted. EXTREMITIES: 2+ peripheral pulses with no evidence of peripheral edema and no calf tenderness noted. NEUROLOGIC patient is awake, alert and oriented ?-3. . - Labs CBC & Chem 7: 06/16/18 21:04 06/16/18 21:04 Labs: Abnormal Lab Results - Last 24 Hours (Table) 06/19/18 06/19/18 06/19/18 Range/Units 05:37 05:57 11:07 PT 19.5 H (9.0-12.0) sec INR 2.2 H (<1.2) POC Glucose (mg/dL) 106 H 105 H (75-99) mg/dL Assessment and Plan Plan: Assessment and plan #1 symptoms of left-sided flaccidity and weakness, suggestive of TIA. Initial CAT scan was normal. #2 paroxysmal atrial fibrillation, patient has history of prior ablation in 2012 , Rythmol was discontinued in the office yesterday, he was told to start flecainide from tomorrow. He then is scheduled to undergo a cardioversion next week, and subsequent ablation on July 13. On Coumadin for anticoagulation , INR 2.9. #3 hyperlipidemia #4 hypertension #5 family history of CAD #6 prior history of smoking Plan Limited echocardiogram with bubble's was performed which revealed an ejection fraction of 55-60%. No atrial shunt was visualized at the agitated saline study portion. Patient will be scheduled today to undergo transesophageal echocardiographic study. If no evidence of thrombus, he'll be discharged home. He'll follow-up with Dr. Miranda in the office. Cardioversion scheduled on July 18 and ablation to follow. DNP note has been reviewed, I agree with a documented findings and plan of care. Patient was seen and examined.
[2018-06-19] MEDS ORDERED: SODIUM CHLORIDE 0.9% 1,000 ML IV SCH (14:00)
[2018-06-19 14:08] VITALS: RESP 16
--- NOTE | 2018-06-19 15:13 | P.DS ---
Providers Date of admission: 06/16/18 22:26 Attending physician: Dillon Loza Consults: 06/16/18 22:27 Consult Physician Routine Consulting Provider: Yana Torres Consult Reason/Comments: tia v. cva Do you want consulting provider notified?: Yes, Notify in am 06/17/18 11:00 Consult Physician Urgent Consulting Provider: Aleida Aponte Consult Reason/Comments: Patient with atrial fib. and TIA. Do you want consulting provider notified?: Yes Primary care physician: [facility] Course: This is a pleasant 63 years old male with past medical history of atrial fibrillation, hyperlipidemia, hypertension, who presents because of temporal left upper extremity weakness. Patient with no previous history of stroke/TIA, he developed sudden weakness in his left upper extremity medical, by the time he called EMS and get into the chart his weakness has resolved within 15-20 minutes. This is associated with numbness specific general headache about 5/10 in severity which is also resolved within the same time frame of 15-20 minutes. Currently patient states that his left upper extremity is improved back to normal. He was on Coumadin for A. fib and is scheduled to have ablation surgery /procedure on 07/13/2018. pt was started on flecainide by cardiology team , they added aspirin to his anti-coagulation regiment, and recommended he f/u with as outpt . Also patient has been evaluated by neurosurgical team. Patient underwent BRANDY on 06/19/2018 which did not reveal clots. Patient was cleared by cardiology and neurology team for discharge. Problems and management plan was discussed with patient, patient is found stable and can be discharged home however he needs follow-up as an outpatient. GENERAL: The patient is alert and oriented x3, not in any acute distress. CARDIOVASCULAR: S1 and S2 present. No murmurs, rubs, or gallops. PULMONARY: Chest is clear to auscultation, no wheezing or crackles. ABDOMEN: Soft, nontender, nondistended, normoactive bowel sounds. No palpable organomegaly. MUSCULOSKELETAL: No joint swelling or deformity. EXTREMITIES: No cyanosis, clubbing, or pedal edema. NEUROLOGICAL: Gross neurological examination did not reveal any focal deficits. time spent more than 35 min Patient Condition at Discharge: Fair Plan - Discharge Summary Discharge Rx Participant: No New Discharge Prescriptions: New Aspirin [Adult Low Dose Aspirin EC] 81 mg PO DAILY #30 tablet. Flecainide [Tambocor] 50 mg PO Q12HR tab Continue Simvastatin [Zocor] 40 mg PO HS Warfarin [Coumadin] 5 mg PO SUMOTUWETHFR Warfarin [Coumadin] 2.5 mg PO SA Omeprazole [PriLOSEC] 20 mg PO [facility] Metoprolol Succinate [Toprol Xl] 50 mg PO DAILY Lisinopril 40 mg PO DAILY metFORMIN HCL [Glucophage] 500 mg PO BID Discharge Medication List Lisinopril 40 mg PO DAILY 06/16/18 [History] Metoprolol Succinate [Toprol Xl] 50 mg PO DAILY 06/16/18 [History] Omeprazole [PriLOSEC] 20 mg PO AC-BRKFST 06/16/18 [History] Simvastatin [Zocor] 40 mg PO HS 06/16/18 [History] Warfarin [Coumadin] 2.5 mg PO SA 06/16/18 [History] Warfarin [Coumadin] 5 mg PO SUMOTUWETHFR 06/16/18 [History] metFORMIN HCL [Glucophage] 500 mg PO BID 06/16/18 [History] Aspirin [Adult Low Dose Aspirin EC] 81 mg PO DAILY #30 tablet. 06/18/18 [Rx] Flecainide [Tambocor] 50 mg PO Q12HR tab 06/18/18 [Rx] Follow up Appointment(s)/Referral(s): Avel Miranda MD [STAFF PHYSICIAN] - 1 Week () Sneha Torres MD [STAFF PHYSICIAN] - 1 Week (neurologist ) Kin Denton MD [Primary Care Provider] - 1-2 days (Office will call with appointment) Patient Instructions/Handouts: Transient Ischemic Attack (DC) Activity/Diet/Wound Care/Special Instructions: cardiac diet activity as tolerated Discharge Disposition: HOME SELF-CARE
[2018-06-19 16:10] LABS: Glucose,Whole Blood 106 mg/dL (75-99)
[2018-06-19 16:45] VITALS: BP 121/80; PULSE 84
== END 2018-06-19 16:51 | disposition home or self-care (01) ==
LOC: EC 19:49 → 6SEL 22:26 → UNDOADMIN 22:26 → 6SEL 22:26
PROVIDERS: ADMIT Hospitalist; ATTEND Hospitalist
DX: G45.9 Transient cerebral ischemic attack, unspecified (principal); I48.1 Persistent atrial fibrillation; I48.2 Chronic atrial fibrillation; I10 Essential (primary) hypertension; E78.5 Hyperlipidemia, unspecified; E11.9 Type 2 diabetes mellitus without complications; K21.9 Gastro-esophageal reflux disease without esophagitis; Z79.01 Long term (current) use of anticoagulants; Z79.899 Other long term (current) drug therapy; Z79.84 Long term (current) use of oral hypoglycemic drugs; Z87.891 Personal history of nicotine dependence; Z82.49 Family history of ischemic heart disease and other diseases of the circulatory system
CPT/HCPCS: 36415; 70450; 71046; 80053; 80061; 82550; 82553; 83036; 84484; 85025; 85610; 85730; 93005; 93308; 93312; 93320; 93325; 93880; 99285

== ENCOUNTER 2019-06-25 10:46 | Day surgery (SDC) | payer BC ==
[2019-06-21 10:43] VITALS: BMI 33.0
[~2019-06-25 10:46] MED LIST: LACTATED RINGERS 1,000 ML IV SCH; LIDOCAINE 1% 20 ML VIAL (10MG/ML) FOR IV START INTRADERMA PRN; SODIUM CHLORIDE 0.9% 1,000 ML IV SCH
[2019-06-25 11:49] LABS: Glucose,Whole Blood 105 mg/dL (75-99)
[2019-06-25] MEDS ORDERED: SODIUM CHLORIDE 0.9% 500 ML 500 ML IV ONE (11:55)
[2019-06-25 11:58] VITALS: RESP 16; TEMP 97.9
[2019-06-25] MEDS ORDERED: KETAMINE 10 MG/ML 20 ML VIAL ONE (12:24)
[2019-06-25] MEDS ORDERED: MIDAZOLAM 2 MG/2 ML VIAL ONE (12:24)
[2019-06-25] MEDS ORDERED: PROPOFOL 10 MG/ML 20 ML VIAL IV ONE (12:24)
[2019-06-25] MEDS ORDERED: LIDOCAINE 1% INJ 10MG/ML (20 ML MDV) ONE (12:24)
[2019-06-25] MEDS ORDERED: fentaNYL (PF) 50 MCG/ML 2 ML AMP ONE (12:24)
[2019-06-25] MEDS: BENZOCAINE SPRAY 1 CAN MUCOUS MEM ONE ×3 (12:27→12:45)
--- NOTE | 2019-06-25 13:18 | P.PCN ---
Preoperative Diagnosis: Diagnosis Persistent symptomatic atrial fibrillation with tiredness and fatigue despite adequate rate control BRANDY negative For intracardiac mass or thrombus Procedure Electrical cardioversion performed Single 360 J biphasic shock in the AP configuration was successful to restore sinus rhythm, heart rate in the 70s No postconversion pause Suggest Continue anticoagulation Continue flecainide Twelve-lead ECG
--- NOTE | 2019-06-25 13:19 | P.PRLE ---
RE: Aleks Pandey Dear Dr. Goodman Mr. Pandey underwent successful electrical cardioversion for persistent symptomatically atrial fibrillation after his BRANDY demonstrated absence of any intracardiac mass or thrombus He will continue anticoagulation and flecainide level see him again in about 2 weeks postprocedure Thank you for entrusting me with the care of the patient Warm regards Sincerely Avel Miranda
--- NOTE | 2019-06-25 13:25 | ECHOT ---
TRANSESOPHAGEAL ECHOCARDIOGRAM This transesophageal echocardiogram was performed to rule out any left atrial thrombi prior to the cardioversion. The patient has a history of atrial fibrillation. PROCEDURE: The patient was given intravenous sedation with the nurse rooming house inspector with propofol and the transesophageal echocardiogram was performed without any complications. FINDINGS: Left ventricular chamber is normal in size with overall normal left ventricular systolic functions. Aortic, mitral and tricuspid valve morphology is normal. There is a mild mitral regurgitation noted. Biatrial enlargement is noted. There is no evidence of thrombus or smoke in the left atrium or there is no evidence of thrombus in left atrial appendage. Interatrial septum is intact. There is no evidence of any PFO. FINAL IMPRESSION: 1. There is no evidence of thrombus in the left atrium or atrial appendage. 2. Left ventricular systolic function is normal. 3. Mitral, aortic and tricuspid valve morphology is normal. 4. There is a mild mitral regurgitation noted. 5. Interatrial septum is intact. 6. There is no evidence of any patent foramen ovale. MMODL / IJN: [id number] /
[2019-06-25 20:21] VITALS: BP 143/75; PULSE 78
[2019-06-26] MEDS ORDERED: METOPROLOL SUCCINATE (ER) 25 MG TAB.ER.24H PO SCH (09:00)
--- NOTE | 2019-07-06 13:34 | CDI ---
Documentation Clarification Request Date: 07/06/19 Request from: Ila Song, Radio Sales Account Executive Patient: Aleks Pandey Date of service: 06/25/19 Dr. Wolf, On 06/25/19, you performed a BRANDY on this patient. However, you dictated report does not include all aspects of the typical BRANDY study. There is no indication in your report that the color doppler or pulse wave doppler portions of the study were performed. If you did these, please dictate an addendum to your BRANDY report about them being performed and the results. If you did not perform these, please indicate below the line that they were not performed on this patient. Thank you for your assistance in our effort to provide accurate documentation and charging for the services that your patient received on this date. MTDD
== END 2019-06-25 14:41 | disposition home or self-care (01) ==
LOC: CATHCVL 10:46
PROVIDERS: ATTEND Internal Medicine Cardiovascular Disease
DX: I48.1 Persistent atrial fibrillation (principal); I10 Essential (primary) hypertension; E11.9 Type 2 diabetes mellitus without complications; E66.9 Obesity, unspecified; E78.5 Hyperlipidemia, unspecified; Z82.49 Family history of ischemic heart disease and other diseases of the circulatory system; F17.210 Nicotine dependence, cigarettes, uncomplicated; Z79.84 Long term (current) use of oral hypoglycemic drugs; Z79.82 Long term (current) use of aspirin; Z79.01 Long term (current) use of anticoagulants; Z86.73 Personal history of transient ischemic attack (TIA), and cerebral infarction without residual deficits; E78.00 Pure hypercholesterolemia, unspecified; Z79.899 Other long term (current) drug therapy; I34.0 Nonrheumatic mitral (valve) insufficiency
CPT/HCPCS: 93312; 93320; 93325; 92960; J2250; J2001; J3010; J2704

== ENCOUNTER 2019-08-30 10:57 | Day surgery (SDC) | payer BC ==
[2019-08-28 11:17] VITALS: BMI 33.6
[2019-08-30 11:29] LABS: Glucose,Whole Blood 102 mg/dL (75-99)
[2019-08-30] MEDS: SODIUM CHLORIDE 0.9% 1,000 ML IV SCH (11:31)
[2019-08-30] MEDS ORDERED: SUCCINYLCHOLINE CHLORIDE VIAL 200 MG/10 ML VIAL IV ONE (13:16)
[2019-08-30] MEDS ORDERED: HEPARIN SODIUM,PORCINE 10,000 UNIT/ML 1 ML VIAL ONE (13:16)
[2019-08-30] MEDS ORDERED: MIDAZOLAM 2 MG/2 ML VIAL ONE (13:16)
[2019-08-30] MEDS ORDERED: PROTAMINE SULFATE 10 MG/ML 5 ML VIAL IV ONE (13:16)
[2019-08-30] MEDS ORDERED: fentaNYL (PF) 50 MCG/ML 2 ML AMP ONE (13:16)
[2019-08-30] MEDS ORDERED: ISOPROTERENOL 250 MCG/1.25 ML SYR IV ONE (13:16)
[2019-08-30] MEDS ORDERED: PHENYLEPHRINE-0.9% NACL SYG 1 MG/10 ML SYRINGE ONE (13:16)
[2019-08-30] MEDS ORDERED: PROPOFOL 10 MG/ML 20 ML VIAL IV ONE (13:16)
[2019-08-30] MEDS ORDERED: NEOSTIGMINE 1 MG/ML 10 ML VIAL ONE (13:16)
[2019-08-30] MEDS ORDERED: FUROSEMIDE 10 MG/ML 2 ML VIAL ONE (13:16)
[2019-08-30] MEDS ORDERED: GLYCOPYRROLATE 0.2 MG/ML 2 ML VIAL ONE (13:16)
[2019-08-30] MEDS ORDERED: ROCURONIUM BROMIDE 10 MG/ML 10 ML VIAL IV ONE (13:16)
[2019-08-30] MEDS ORDERED: LIDOCAINE 1% INJ 10MG/ML (20 ML MDV) ONE (14:02)
[2019-08-30] MEDS ORDERED: LIDOCAINE 1% INJ 10MG/ML (20 ML MDV) SQ ONE (14:18)
[2019-08-30] MEDS ORDERED: HEPARIN SOD,PORK IN 0.45% NACL 25,000 UNIT in 0.45% NACL 1 250ML.BAG IV ONE (14:32)
[2019-08-30] MEDS ORDERED: ACETAMINOPHEN TAB 325 MG TAB PO PRN (16:50)
[2019-08-30] MEDS ORDERED: HYDROcodone/APAP 5-325MG 1 EACH TAB PO PRN (16:50)
[2019-08-30] MEDS ORDERED: HEPARIN SODIUM (1,000 UNIT/ML) 1,000 UNIT in SODIUM CHLORIDE 0.9% 1,000 ML IRRIGATION ONE (17:40)
[2019-08-30] MEDS ORDERED: ACETAMINOPHEN IV (For NPO) 1,000 MG in EMPTY BAG 1 BAG IVPB ONE (18:00)
[2019-08-30] MEDS: LACTATED RINGERS 1,000 ML IV SCH (18:17)
[2019-08-30] MEDS: HYDROmorphone 1 MG/ML 1 ML SYRINGE IVP ONE ×2 (18:50→18:59)
[2019-08-30] MEDS ORDERED: LACTATED RINGERS 1,000 ML IV ONE (19:03)
[2019-08-30] MEDS ORDERED: METOCLOPRAMIDE 5 MG/ML 2 ML VIAL IVP PRN (19:52)
[2019-08-30 19:58] LABS: Glucose,Whole Blood 126 mg/dL (75-99)
[2019-08-30] MEDS: FLECAINIDE 50 MG TAB PO SCH (20:01)
[2019-08-30] MEDS: metFORMIN 500 MG TAB PO SCH (20:01)
[2019-08-30] MEDS: APIXABAN 5 MG TAB PO SCH (20:01)
[2019-08-30] MEDS ORDERED: ATORVASTATIN 20 MG TAB PO SCH (21:00)
--- NOTE | 2019-08-30 23:40 | PCN ---
PROCEDURE NOTE Mr. Aleks Pandey is a 64-year-old male patient who has persistent atrial fibrillation, symptomatic with tiredness and fatigue. He has had a history of atrial fibrillation and underwent atrial fibrillation ablation in 2012. At that time, pulmonary vein isolation was performed with the RF along with esophageal deflection. He remained atrial fibrillation free for greater than 5 years and had a recurrence which is quite symptomatic. He was brought in for redo atrial fibrillation ablation. DESCRIPTION OF PROCEDURE: Patient was brought to the EP lab in a fasting state. Written informed consent was obtained prior to the procedure. The right and left groins were prepped and draped as per protocol. 1% lidocaine was used for local anesthesia. Venous sheaths were placed in the right and left femoral veins. Via these, diagnostic and mapping ablation catheter was placed. Intracardiac echo catheter was placed. Intracardiac echocardiography revealed absence of any left or right atrial thrombi, no left atrial appendage thrombus, no pericardial effusion. LV function was normal. RV size is normal. Following that, the patient was in sinus rhythm at the start of the study. Sinus cycle length was 877 milliseconds. The AH interval 217 milliseconds, QRS 99 milliseconds, QT 393 milliseconds, AH interval 94 milliseconds, HV interval 45 milliseconds. The interatrial septum was identified. The interatrial septum was thick and during transseptal catheterization, we had to use the transseptal wire as well as utilize electrocautery in the crossover. A long sheath was placed. Coronary sinus catheter was placed. Intracardiac echo catheter was placed. Later the catheters were placed, right ventricle, HIS bundle area and high right atrium. Left to right transseptal catheterization was performed. RA pressure 16 x 10 x 12 mmHg. LA pressure 22 x 7 x 14 mmHg. 3D electro anatomic mapping of the left atrium was performed. The pulmonary veins at the ostial level were completely isolated and therefore a redo pulmonary vein isolation was performed at a very atrial/antral level. Wide [place] antral isolation was performed both on the right side and left-sided veins. Good power was achieved. Good contact force was achieved. Following that, linear ablation was performed at the roof. This was then interrogated during pacing with widely split potentials and demonstration of clear scar. There was no conduction across this line with activation mapping during pacing. The anterior LA pole. The veins and the antrum of the veins were interrogated and were quiescent. Thereafter, high-dose Isuprel was used. Burst stimulation was performed from the distal coronary sinus and proximal coronary sinus down to 250 milliseconds without induction of any atrial fibrillation. VA Wenckebach block was greater than 450 milliseconds. AV node Wenckebach block on Isuprel 290 milliseconds. No other arrhythmias induced. No atrial fibrillation was induced. No atrial tachycardia induced. The patient received IV Lasix after the procedure 40 mg. He also received IV heparin through the procedure and this was reversed and sheaths were removed. At the end of the procedure, intracardiac echo did not reveal any pericardial effusion. RESULT: 1. Successful wide [place] antral isolation for management of atrial fibrillation. 2. Linear ablation with widely split potentials along the lines in complete block across line demonstrated. PLAN: Continue Eliquis and continue low-dose flecainide. MMODL / IJN: [id number] /
--- NOTE | 2019-08-30 23:45 | LTR ---
DATE OF SERVICE: 08/30/[address] Thomas: I had the pleasure of seeing Mr. Aelks Pandey in electrophysiology followup. Mr. Pandey has undergone an a fib ablation in 2012. He remained atrial fibrillation free for over 5 years, but then had recurrence of atrial fibrillation. I had planned to perform an atrial fibrillation ablation on him, but he suffered a CVA despite being therapeutic on Coumadin. He was brought in now for an atrial fibrillation ablation and a wide [place] antral isolation was performed. Linear ablation was performed and I could not induce atrial fibrillation thereafter, despite fairly aggressive stimulation protocol involving high-dose Isuprel and rapid atrial pacing. Hopefully, he remains atrial fibrillation free for many years. He will continue his current medications including Eliquis. Thank you for entrusting me in the care of your patient. Warm regards, Sincerely, CATE / KERRYN: [id number] /
[2019-08-31] MEDS: SODIUM CHLORIDE 0.9% 1,000 ML IV SCH (05:59)
[2019-08-31] MEDS: LACTATED RINGERS 1,000 ML IV SCH (05:59)
[2019-08-31 06:43] LABS: Glucose,Whole Blood 111 mg/dL (75-99)
[2019-08-31 07:14] VITALS: RESP 18
[2019-08-31] MEDS ORDERED: GLIMEPIRIDE 1 MG TAB PO SCH (07:30)
[2019-08-31] MEDS ORDERED: PANTOPRAZOLE 40 MG TABLET PO SCH (07:30)
--- NOTE | 2019-08-31 07:49 | P.DS ---
Providers Attending physician: Avel Miranda Primary care physician: [facility] Course: Patient is doing well. No chest discomfort dizziness lightheadedness palpitations. Mild soreness in both groins but he is ambulating in the boy[place] and in the room His Riley catheter has been removed On examination he is afebrile 97.9F blood pressure ranges from 96/55 229/64 mmHg He has no dizziness lightheadedness upon standing up No JVD No hepatojugular reflux Breath sounds are clear no rhonchi no crackles Normal heart sounds normal S1 normal S2, no murmurs or gallop No pericardial rub Abdomen soft nontender Groins of healed well there is no hematoma No lower extremity edema Impression Persistent atrial fibrillation. These were sources outside the pulmonary vein ostia Status post A. fib ablation yesterday with very large wide [place] antral/atrial level ablations around the pulmonary veins Linear ablation in the roof with complete block across Patient remained noninducible for atrial fibrillation thereafter despite high- dose Isuprel and burst stimulation at multiple sites in the atria Plan Continue ELIQUIS lifelong, patient has a history of CVA on therapeutic doses of Coumadin Continue low-dose flecainide 50 g twice daily and continue low-dose metoprolol Diabetes management per PCP Weight reduction Discussed with patient and his Patient Condition at Discharge: Stable Plan - Discharge Summary Discharge Rx Participant: No New Discharge Prescriptions: No Action Simvastatin [Zocor] 40 mg PO HS Omeprazole [PriLOSEC] 20 mg PO AC-BRKFST Lisinopril 40 mg PO DAILY metFORMIN HCL [Glucophage] 500 mg PO BID Flecainide [Tambocor] 50 mg PO Q12HR tab Apixaban [Eliquis] 5 mg PO BID Glimepiride [Amaryl] 1 mg PO AC-BRKFST Metoprolol Succinate (ER) [Toprol XL] 25 mg PO DAILY #90 tab Discharge Medication List Lisinopril 40 mg PO DAILY 06/16/18 [History] Omeprazole [PriLOSEC] 20 mg PO AC-BRKFST 06/16/18 [History] Simvastatin [Zocor] 40 mg PO HS 06/16/18 [History] metFORMIN HCL [Glucophage] 500 mg PO BID 06/16/18 [History] Flecainide [Tambocor] 50 mg PO Q12HR tab 06/18/18 [Rx] Apixaban [Eliquis] 5 mg PO BID 06/25/19 [History] Glimepiride [Amaryl] 1 mg PO AC-BRKFST 06/25/19 [History] Metoprolol Succinate (ER) [Toprol XL] 25 mg PO DAILY #90 tab 06/25/19 [Rx] Follow up Appointment(s)/Referral(s): Avel Miranda MD [STAFF PHYSICIAN] - 1 Week (follow up with Dr. Miranda/Rosemary Bustamante/Jodie Hurtado in one week) Activity/Diet/Wound Care/Special Instructions: Post EP study - Ablation instructions 1. Keep access sites dry for 2 days. 2. No heavy lifting or straining for 2 days. 3. Avoid bending the hips repeatedly for 2 days. 4. You may go up and down stairs slowly Call if the following is noted 1. Bleeding, increasing swelling or pain at the access sites. 2. Increasing chest discomfort, especially upon taking a deep breath. 3. Increasing shortness of breath, at rest or with exertion. 4. Undue cough / phlegm 5. Difficulty or pain while swallowing. 6. Pain or change in color in the extremities. 7. Fever, chills, rigors. 8. Increasing headache or neurologic symptoms. 9. Dizziness, fainting, palpitations Continue all medications including anticoagulation with eliquis Discharge Disposition: HOME SELF-CARE
[2019-08-31] MEDS: FLECAINIDE 50 MG TAB PO SCH (08:26)
[2019-08-31] MEDS: metFORMIN 500 MG TAB PO SCH (08:26)
[2019-08-31] MEDS: APIXABAN 5 MG TAB PO SCH (08:27)
[2019-08-31] MEDS ORDERED: METOPROLOL SUCCINATE (ER) 25 MG TAB.ER.24H PO SCH (09:00)
[2019-08-31] MEDS ORDERED: LISINOPRIL 20 MG TAB PO SCH (09:00)
[2019-08-31 11:54] LABS: Glucose,Whole Blood 109 mg/dL (75-99)
[2019-08-31 15:47] VITALS: BP 126/65; PULSE 63; TEMP 98.1
== END 2019-08-31 16:51 | disposition home or self-care (01) ==
LOC: CATHEP 10:57 → 1SOBS 17:46 → CATHEP 08-31 16:51
PROVIDERS: ATTEND Internal Medicine Clinical Cardiac Electrophysiology
DX: I48.19 Other persistent atrial fibrillation (principal); E11.9 Type 2 diabetes mellitus without complications; I10 Essential (primary) hypertension; E78.5 Hyperlipidemia, unspecified; E66.9 Obesity, unspecified; Z68.33 Body mass index [BMI] 33.0-33.9, adult; Z87.891 Personal history of nicotine dependence; Z86.73 Personal history of transient ischemic attack (TIA), and cerebral infarction without residual deficits; Z79.01 Long term (current) use of anticoagulants; Z79.84 Long term (current) use of oral hypoglycemic drugs; Z79.899 Other long term (current) drug therapy
CPT/HCPCS: 85347; 93623; 93662; 93613; 93656; C1769 ×5; C1894; C1730; C1759; C1893; C1732; J2250; J0330; J2720; J1644 ×3; J1940; J2710; J2765; J2001; J3010; J1170; J2370; J2704

== ENCOUNTER 2025-03-14 13:00 | Day surgery (SDC) | payer BC, MEDICARE ==
[~2025-03-14 13:00] MED LIST changes: -LACTATED RINGERS 1,000 ML IV SCH; -LIDOCAINE 1% 20 ML VIAL (10MG/ML) FOR IV START INTRADERMA PRN
[2025-03-14 14:16] VITALS: BP 130/76; PULSE 79; RESP 16; TEMP 98.3
[2025-03-14 14:22] LABS: Glucose,Whole Blood 120 mg/dL (70-110)
[2025-03-14] MEDS: IV FLUID CONTINUATION 500 ML IV ONE (14:27)
[2025-03-14] MEDS: ceFAZolin 2 GM in DEXTROSE 5% IN WATER 50 ML IVPB ONE (14:38)
[2025-03-14] MEDS: LIDOCAINE 1% INJ 10MG/ML (20 ML MDV) SQ ONE (14:39)
--- NOTE | 2025-03-14 16:49 | P.EPPROC ---
- EP Procedure Note Electrophysiology Procedure Note: Loop monitor implant, Abreu device Primary physicians: Boat Cleaner: Dr. Miranda Indication: Atrial fibrillation, sick sinus syndrome, first-degree AV block Patient was brought to the EP lab in a fasting state. Written informed consent was obtained prior to the procedure. The left pectoral area was prepped and draped per protocol. Intravenous antibiotic was administered preoperatively. A subcutaneous Loop monitor was implanted successfully and the wound was closed per protocol. The device was programmed to detect significant yani- arrhythmic and tachy-arrhythmic events, per protocol. Device and programming details: Atrial fibrillation management
== END 2025-03-14 14:59 | disposition home or self-care (01) ==
LOC: CATHEP 13:00
PROVIDERS: ATTEND Internal Medicine Clinical Cardiac Electrophysiology
DX: I49.5 Sick sinus syndrome (principal); I44.0 Atrioventricular block, first degree; I10 Essential (primary) hypertension; I48.20 Chronic atrial fibrillation, unspecified; I34.0 Nonrheumatic mitral (valve) insufficiency; Z79.01 Long term (current) use of anticoagulants; Z79.899 Other long term (current) drug therapy
CPT/HCPCS: 33285; C1764; J0690; J2003